=== PATIENT | female | born 1990 | race Caucasian/White ===

== ENCOUNTER 2022-07-18 13:05 | Emergency (ER) | payer BC ==
[2022-07-18] MEDS ORDERED: Ketorolac 30 MG/ML SDV IM ONE (14:00)
[2022-07-18] MEDS ORDERED: traMADol 50 MG Tab PO ONE (14:01)
[2022-07-18] MEDS ORDERED: Orphenadrine 60 MG/2 ML Inj IM ONE (14:01)
== END 2022-07-18 15:49 | disposition home or self-care (01) ==
LOC: MW.ED 13:05
DX: S39.012A Strain of muscle, fascia and tendon of lower back, initial encounter (principal); X50.1XXA Overexertion from prolonged static or awkward postures, initial encounter; Y99.0 Civilian activity done for income or pay
CPT/HCPCS: 72100; 81003; 81025; 96372; 99283; A9270; J1885; J2360

== ENCOUNTER 2024-06-09 07:52 | Observation (INO) | payer SELFPAY ==
[2024-06-09 11:13] LABS: HEMATOCRIT 32.5 % (37.0-47.0); HEMOGLOBIN 10.9 g/dL (12.0-16.0); MEAN CORPUSCULAR HEMOGLOBIN 29.8 pg (28.0-32.0); MEAN CORPUSCULAR HGB CONC 33.5 g/dL (32.0-36.0); MEAN CORPUSCULAR VOLUME 88.8 fL (83.0-99.0); MEAN PLATELET VOLUME 9.3 fL (9.4-12.3); PLATELET COUNT,PLT 261 K/uL (150-400); RED BLOOD CELL COUNT 3.66 M/uL (4.10-5.30); WHITE BLOOD CELL COUNT,WBC 13.37 K/uL (3.9-11.3)
[2024-06-09] MEDS ORDERED: Sodium Chloride 0.9% 10 ML Syringe FLUSH PRN (11:16)
[2024-06-09] MEDS ORDERED: Ondansetron 4 MG Tab.DIS PO PRN (11:16)
[2024-06-09] MEDS ORDERED: Sodium Chloride 0.9% 2.5 ML Syringe FLUSH PRN (11:16)
[2024-06-09] MEDS ORDERED: Sodium Chloride 0.9% 20 ML SDV IV PRN (11:16)
[2024-06-09 11:40] LABS: INR 0.99 (0.86-1.11)
[2024-06-10] MEDS ORDERED: ARIPiprazole 10 MG Tab PO SCH (10:30)
[2024-06-10] MEDS: Betamethasone Acetate/Betamethasone Sod Phosphate 6 MG/1 ML MDV IM SCH (10:38)
[2024-06-11] MEDS: Acetaminophen 325 MG Tab PO PRN (06:09)
== END 2024-06-11 10:54 | disposition critical access hospital (66) ==
LOC: MW.OBCHECK 07:52 → MW.OB 08:09 → MW.OBCHECK 12:34
PROVIDERS: ADMIT Obstetrics & Gynecology; ATTEND Obstetrics & Gynecology
DX: O44.33 Partial placenta previa with hemorrhage, third trimester (principal); Z3A.29 29 weeks gestation of pregnancy; O99.283 Endocrine, nutritional and metabolic diseases complicating pregnancy, third trimester; O99.343 Other mental disorders complicating pregnancy, third trimester; F41.9 Anxiety disorder, unspecified; E03.9 Hypothyroidism, unspecified; Z79.899 Other long term (current) drug therapy
CPT/HCPCS: 36415; 59025; 85027; 85384; 85610; 85730; 86850; 86900; 86901; 96372; A9270; G0378; J0702

== ENCOUNTER 2024-06-19 03:42 | Observation (INO) | payer BC ==
[2024-06-19] MEDS: Lactated Ringers 1,000 ML IV SCH (04:35)
[2024-06-19] MEDS ORDERED: Ondansetron 4 MG/2 ML SDV IVPUSH PRN (04:53)
[2024-06-19] MEDS ORDERED: Butorphanol 2 MG/ML SDV IVPUSH PRN (04:53)
[2024-06-19] MEDS ORDERED: Lidocaine 1% 50 ML MDV INJECT PRN (04:53)
[2024-06-19] MEDS ORDERED: Sodium Chloride 0.9% 10 ML Syringe FLUSH PRN (04:53)
[2024-06-19] MEDS ORDERED: Carboprost Tromethamine 250 MCG/1 mL Vial IM PRN (04:53)
[2024-06-19] MEDS ORDERED: Methylergonovine 0.2 MG/1 ML Amp IM PRN (04:53)
[2024-06-19] MEDS ORDERED: Misoprostol 200 MCG Tab PO PRN (04:53)
[2024-06-19] MEDS ORDERED: Sodium Chloride 0.9% 2.5 ML Syringe FLUSH PRN (04:53)
[2024-06-19] MEDS ORDERED: Water For Irrigation,Sterile 1,000 ML Container IRR PRN (04:53)
[2024-06-19] MEDS ORDERED: Tranexamic Acid in NACL,ISO-OS 1,000 MG in Premix Bag 1 BAG IV PRN (04:53)
[2024-06-19] MEDS ORDERED: Oxytocin/0.9 % Sodium Chloride 30 UNIT/500 ML BAG IV SCH (05:00)
[2024-06-19 05:03] LABS: HEMATOCRIT 30.7 % (37.0-47.0); HEMOGLOBIN 10.2 g/dL (12.0-16.0); MEAN CORPUSCULAR HEMOGLOBIN 29.4 pg (28.0-32.0); MEAN CORPUSCULAR HGB CONC 33.2 g/dL (32.0-36.0); MEAN CORPUSCULAR VOLUME 88.5 fL (83.0-99.0); MEAN PLATELET VOLUME 9.7 fL (9.4-12.3); PLATELET COUNT,PLT 278 K/uL (150-400); RED BLOOD CELL COUNT 3.47 M/uL (4.10-5.30); WHITE BLOOD CELL COUNT,WBC 15.52 K/uL (3.9-11.3)
[2024-06-19 05:22] LABS: INR 0.96 (0.86-1.11); PTT,PARTIAL THROMBOPLSTIN TIME 25.7 SEC (23.9-30.7)
[2024-06-19] MEDS ORDERED: ARIPiprazole 10 MG Tab PO SCH (09:00)
[2024-06-19] MEDS ORDERED: Fluticasone NASAL Spray 16 GM Bottle NASBOTH SCH ×2 (09:00→21:00)
[2024-06-19] MEDS ORDERED: Cetirizine 10 MG Tab PO SCH (09:00)
[2024-06-19] MEDS ORDERED: Prenatal Multivitamin with Calcium/Folic Acid/Iron Tab PO SCH (09:00)
[2024-06-19] MEDS: Cholecalciferol (Vitamin D3) 25 MCG Tab PO SCH (11:24)
[2024-06-19] MEDS: Cyanocobalamin (Vitamin B12) 500 MCG Tab PO SCH (11:24)
[2024-06-19] MEDS: Acetaminophen 325 MG Tab PO PRN (21:34)
[2024-06-20] MEDS: Fluticasone NASAL Spray 16 GM Bottle NASBOTH SCH (07:00)
[2024-06-20] MEDS: THYROID PORK 60 MG PO SCH (08:45)
[2024-06-20] MEDS: ARIPiprazole 5 MG Tab PO SCH (08:45)
[2024-06-20] MEDS: Vilazodone Hcl [Viibryd] 40 MG Tablet PO SCH (08:45)
[2024-06-20] MEDS: Cetirizine 10 MG Tab PO SCH (08:45)
[2024-06-20] MEDS ORDERED: Prenatal Multivitamin with Calcium/Folic Acid/Iron Tab PO SCH (09:00)
[2024-06-20] MEDS ORDERED: ARIPiprazole 10 MG Tab PO SCH (09:00)
[2024-06-20] MEDS ORDERED: Cholecalciferol (Vitamin D3) 25 MCG Tab PO SCH (09:00)
[2024-06-20] MEDS ORDERED: Non-Formulary Medication 1 Each (Cyanocobalamin (Vitamin B-12) [Vitamin B-12] 1,000 MCG Ta PO SCH (09:00)
[2024-06-20 10:16] LABS: HEMOGLOBIN 9.5 g/dL (12.0-16.0); MEAN CORPUSCULAR HEMOGLOBIN 29.1 pg (28.0-32.0); MEAN CORPUSCULAR HGB CONC 32.8 g/dL (32.0-36.0); MEAN CORPUSCULAR VOLUME 88.7 fL (83.0-99.0); MEAN PLATELET VOLUME 9.4 fL (9.4-12.3); PLATELET COUNT,PLT 250 K/uL (150-400); RED BLOOD CELL COUNT 3.27 M/uL (4.10-5.30); WHITE BLOOD CELL COUNT,WBC 12.61 K/uL (3.9-11.3)
[2024-06-20 10:48] LABS: PERCENT FE SATURATION 6.96 % (20-55)
[2024-06-20] MEDS: Sodium Ferric Gluconate Cmplex 125 MG in Sodium Chloride 0.9% 100 ML IV ONE (11:54)
[2024-06-20] MEDS: Prenatal Multivitamin with Calcium/Folic Acid/Iron Tab PO SCH (11:59)
== END 2024-06-20 13:23 ==
LOC: MW.OBCHECK 03:42 → MW.OB 03:42 → MW.OBCHECK 04:53
PROVIDERS: ADMIT Obstetrics & Gynecology; ATTEND Obstetrics & Gynecology
DX: O44.13 Complete placenta previa with hemorrhage, third trimester (principal); Z3A.30 30 weeks gestation of pregnancy; O99.343 Other mental disorders complicating pregnancy, third trimester; F41.9 Anxiety disorder, unspecified; F32.A Depression, unspecified; O99.283 Endocrine, nutritional and metabolic diseases complicating pregnancy, third trimester; E03.9 Hypothyroidism, unspecified; Z79.890 Hormone replacement therapy; Z79.899 Other long term (current) drug therapy
CPT/HCPCS: 36415; 51702; 83550; 85027; 85384; 85610; 85730; 86592; 86850; 86900; 86901; 86920; 96361; 96365; A9270; G0378; J2916; J3490; J7120